=== PATIENT | male | born 1980 | race African-American/Black ===

== ENCOUNTER 2016-06-18 14:02 | Emergency (ER) | payer OTHER ==
[~2016-06-18] VITALS: Ht 185.4 cm; Wt 99.8 kg
[~2016-06-18 14:02] MED LIST: GEODON20 MG PO; SEROQUEL200 MG PO
[2016-06-18 14:22] VITALS: BP 135/86
--- NOTE | 2016-06-18 15:07 | NUR ---
PT STATES HEADACHE, SORE THROAT FOR TWO WEEKS . DENIES N/V/D; SKIN IS PINK/WARM/DRY; AAOX4 WITH EVEN AND STEADY GAIT; PT DENIES ANY FEVER, CP, SOB, AT THIS TIME; PATIENT STATES PAIN OF 8/10 AT THIS TIME; VSS; PATIENT POSITIONED FOR COMFORT; HOB ELEVATED; BEDRAILS UP X1; BED DOWN. .
[2016-06-18 16:15] VITALS: BP 135/86
--- NOTE | 2016-06-18 16:16 | NUR ---
Patient discharged with v/s stable. Written and verbal after care instructions given and explained. Patient alert, oriented and verbalized understanding of instructions. Ambulatory with steady gait. All questions addressed prior to discharge. ID band removed. Patient advised to follow up with PMD. Rx of IBUPROFEN, PROMETHAZINE given. Patient educated on indication of medication including possible reaction and side effects. Opportunity to ask questions provided and answered.
== END 2016-06-18 16:16 | disposition home or self-care (01) ==
LOC: MED 14:02
DX: J06.9 Acute upper respiratory infection, unspecified (principal); R03.0 Elevated blood-pressure reading, without diagnosis of hypertension; F20.9 Schizophrenia, unspecified

== ENCOUNTER 2016-07-20 16:40 | Emergency (ER) | payer OTHER ==
[~2016-07-20] VITALS: Ht 185.4 cm; Wt 100.7 kg
[2016-07-20 16:52] VITALS: BP 130/87
--- NOTE | 2016-07-20 17:27 | NUR ---
Patient ambulated to bed 5 with family. TANK COOPER evaluating patient at bedside.
--- NOTE | 2016-07-20 17:35 | NUR ---
Patient being evaluated by physician at bedside.
[2016-07-20 18:20] VITALS: BP 135/70
--- NOTE | 2016-07-20 18:22 | NUR ---
Patient discharged with v/s stable. Written and verbal after care instructions given and explained. Patient alert, oriented and verbalized understanding of instructions. Ambulatory with steady gait. All questions addressed prior to discharge. ID band removed. Patient advised to follow up with PMD. Rx of MOTRIN AND EAR DROPS given. Patient educated on indication of medication including possible reaction and side effects. Opportunity to ask questions provided and answered.
== END 2016-07-20 18:21 | disposition home or self-care (01) ==
LOC: MED 16:40
DX: H60.91 Unspecified otitis externa, right ear (principal); F17.200 Nicotine dependence, unspecified, uncomplicated; Z71.6 Tobacco abuse counseling

== ENCOUNTER 2016-08-14 01:20 | Emergency (ER) | payer OTHER ==
[~2016-08-14] VITALS: Ht 185.4 cm; Wt 100.7 kg
[~2016-08-14 01:20] MED LIST changes: -GEODON20 MG PO; +QUET200T PO; -SEROQUEL200 MG PO; +ZIPR20CA1 PO
[2016-08-14 01:23] VITALS: BP 148/90
--- NOTE | 2016-08-14 04:04 | NUR ---
TO ER BED 4
--- NOTE | 2016-08-14 04:08 | NUR ---
35 Y/O HERE W/C/O ABD PAIN, NAUSEA AND VOMITTING X LAST NIGHT. NO S/S OF DISTRESS NOTED AT THE MOMENT. ER MD MADE AWARE.
[2016-08-14] MEDS ORDERED: KETOROLAC 60 MG/2 ML VIAL IM ONE (04:25)
[2016-08-14 05:26] VITALS: BP 135/84
== END 2016-08-14 05:26 | disposition home or self-care (01) ==
LOC: MED 01:20
DX: K59.00 Constipation, unspecified (principal); R03.0 Elevated blood-pressure reading, without diagnosis of hypertension; F17.210 Nicotine dependence, cigarettes, uncomplicated
CPT/HCPCS: 74000; 99283

== ENCOUNTER 2017-05-23 17:18 | Emergency (ER) | payer MEDICAID, OTHER ==
[~2017-05-23] VITALS: Ht 185.4 cm; Wt 95.8 kg
[2017-05-23 17:37] VITALS: BP 144/85
--- NOTE | 2017-05-23 18:38 | NUR ---
Tri garza in ED - 05/23/17 at 1843 by [email or web address] 36/M PRESENT TO ER C/O RT SHOULDER PAIN x 2MO. PT CANNOT RECALL INJURY OR TRAUMA.
--- NOTE | 2017-05-23 18:43 | NUR ---
36/M PRESENT TO ER C/O RT SHOULDER PAIN x 2MO. PT CANNOT RECALL INJURY OR TRAUMA.SKIN IS PINK/WARM/DRY; AAOX4 WITH EVEN AND STEADY GAIT; LUNGS CLEAR BL; PATIENT STATES PAIN OF 02/03 AT THIS TIME. Addendum: 05/23/17 at 1850 by [email or web address] PT DOESN'T WANT PAIN MED AT THIS TIME
[2017-05-23 18:49] VITALS: BP 144/85
== END 2017-05-23 18:49 | disposition home or self-care (01) ==
LOC: MED 17:18
DX: S46.911A Strain of unspecified muscle, fascia and tendon at shoulder and upper arm level, right arm, initial encounter (principal); X58.XXXA Exposure to other specified factors, initial encounter; Y93.89 Activity, other specified; Y92.89 Other specified places as the place of occurrence of the external cause; Y99.8 Other external cause status
CPT/HCPCS: 73030; 99284

== ENCOUNTER 2017-08-18 07:27 | Emergency (ER) | payer MEDICAID, OTHER ==
[~2017-08-18] VITALS: Ht 190.5 cm; Wt 97.1 kg
[2017-08-18 07:31] VITALS: BP 136/83
--- NOTE | 2017-08-18 07:34 | NUR ---
pt ambulated to bed 11
--- NOTE | 2017-08-18 07:36 | NUR ---
dr brice evaluating at bedside
--- NOTE | 2017-08-18 07:37 | NUR ---
PT COMES TO ED C/O HEADACHE TO RT TEMPORAL AREA FOR 1 MONTH, "STATES THERES SOMETHING IN THERE." PT DENIES SOB, N/V/DIZZINESS. NAD NOTED/STATED OTHERWISE.
[2017-08-18 07:46] VITALS: BP 133/78
== END 2017-08-18 07:47 | disposition home or self-care (01) ==
LOC: MED 07:27
DX: M26.601 Right temporomandibular joint disorder, unspecified (principal); R03.0 Elevated blood-pressure reading, without diagnosis of hypertension
CPT/HCPCS: 99283

== ENCOUNTER → 2018-07-21 10:45 | Emergency (ER) | payer OTHER ==
[~2018-07-21] VITALS: Ht 185.4 cm; Wt 103.4 kg
[2018-07-21 10:47] VITALS: BP 187/107
--- NOTE | 2018-07-21 10:47 | NUR ---
ROSARIO GOLDSTEIN [facility], OFFICER ANNIE, C/O HTN AND THROBING HEADACHE AT 5/10 X1 DAY. PERRLA, AAOX4, FACIAL SYMMETRY INTACT, MEMORY INTACT, SPEECH CLEAR, AND STEADY GAIT. VSS. CHRISTY ECHAVARRIA TO SEE PT. MEDHX:DENIES RX:DENIES NKA
[2018-07-21 11:23] VITALS: BP 187/107
--- NOTE | 2018-07-21 11:23 | NUR ---
PATIENT BIB [facility] [employer]. PATIENT EXAMINED BY DR. MEIER. PATIENT MEDICALLY CLEARED AND RELEASED IN CUSTODY IN STABLE CONDITION. ORIGINAL PRE-BOOK FORM GIVEN TO OFFICER ANNIE.
== END ==
LOC: MED 10:45
DX: Z02.89 Encounter for other administrative examinations (principal); Z79.899 Other long term (current) drug therapy
CPT/HCPCS: 99283

== ENCOUNTER 2022-08-22 08:23 | Emergency (ER) | payer MEDICAID, OTHER ==
[~2022-08-22] VITALS: Ht 185.4 cm; Wt 102.1 kg
[2022-08-22 08:31] VITALS: BP 152/97
--- NOTE | 2022-08-22 08:44 | NUR ---
The patient's care was reviewed and supervised by TALISHA RIVERO RN.
--- NOTE | 2022-08-22 08:50 | NUR ---
Dr. Cruz evaluating patient at bedside.
[2022-08-22] MEDS ORDERED: KETOROLAC 15 MG/ML VIAL IM ONE (08:55)
[2022-08-22] MEDS ORDERED: IBUP-2213 PO (09:02)
--- NOTE | 2022-08-22 09:26 | NUR ---
Patient discharged with v/s stable. Written and verbal after care instructions UPPPER RESP. INFECTION, VIRAL given and explained. Patient verbalized understanding. Ambulatory with steady gait. All questions addressed prior to discharge. Advised to follow up with PMD. PT. STABLE FOR D/C, AWAKE AND ALERT
== END 2022-08-22 09:25 | disposition home or self-care (01) ==
LOC: MED 08:23
DX: J06.9 Acute upper respiratory infection, unspecified (principal); Z79.899 Other long term (current) drug therapy
CPT/HCPCS: 96372; 99283; J1885

== ENCOUNTER 2022-09-16 15:11 | Emergency (ER) | payer MEDICAID ==
[~2022-09-16] VITALS: Ht 182.9 cm; Wt 117.0 kg
[~2022-09-16 15:11] MED LIST changes: +IBUP-2213 PO
[2022-09-16 15:46] VITALS: BP 161/108
--- NOTE | 2022-09-16 18:21 | NUR ---
PT AMBULATORY TO BED 1
--- NOTE | 2022-09-16 19:24 | NUR ---
report given to rosario barnett
[2022-09-16 19:30] VITALS: BP 141/9
--- NOTE | 2022-09-16 19:30 | NUR ---
Assumed care of patient at change of shift. Introduced self to patient, patient resting comfortably at this time c/o 10/10 bilateral ear and abd pain ongoing x4 months but worse today. Bed to low position sr up, continue to monitor.
[2022-09-16] MEDS ORDERED: DICYCLOMINE 10 MG CAP PO ONE (19:50)
[2022-09-16] MEDS ORDERED: ONDANSETRON 4 MG ODT PO ONE (19:50)
[2022-09-16] MEDS ORDERED: IBUPROFEN 600 MG TAB PO ONE (19:50)
[2022-09-16 20:03] LABS: BASOPHILS % (AUTO) 0.5 % (0.0-2.0); EOSINOPHILS % (AUTO) 0.6 % (0.0-4.0); HEMATOCRIT 43.8 % (36-52); HEMOGLOBIN 14.8 g/dL (12.0-18.0); LYMPHOCYTES % (AUTO) 14.3 % (20.5-51.1); MEAN CORPUSCULAR HEMOGLOBIN 30 pg (27-31); MEAN CORPUSCULAR HGB CONC 34 g/dL (33-37); MEAN CORPUSCULAR VOLUME 89.2 fL (80-94); MONOCYTES # (AUTO) 0.6 K/uL (0.8-1.0); NEUTROPHILS # (AUTO) 5.4 K/uL (1.8-7.7); NEUTROPHILS % (AUTO) 75.6 % (42.2-75.2); PLATELET COUNT (AUTO) 204 K/uL (140-450); RED BLOOD CELL COUNT(AUTO) 4.91 MIL/uL (4.20-6.10); RED CELL DISTRIBUTION WIDTH 14.2 % (11.6-13.7); WHITE BLOOD COUNT (AUTO) 7.1 K/uL (4.8-10.8)
[2022-09-16 20:03] LABS: APPEARANCE,URINE CLEAR (CLEAR); BILIRUBIN,URINE NEGATIVE (NEGATIVE); BLOOD, URINE TRACE-I (NEGATIVE); COLOR,URINE YELLOW (YELLOW); LEUKOCYTE ESTERASE ,URINE NEGATIVE (NEGATIVE); NITRITE, URINE POSITIVE (NEGATIVE); PH,URINE 6.5 (5.0-9.0); UGLUCOSE NEGATIVE (NEGATIVE)
--- NOTE | 2022-09-16 20:05 | NUR ---
patient medicated as ordered w/ motrin, bentyl, and zofran odt as ordered. will observe for any adverse reaction. bed to low position sr up, continue to monitor.
[2022-09-16 20:22] LABS: ALBUMIN 3.3 g/dL (3.4-5.0); TOTAL BILIRUBIN 0.4 mg/dL (0.0-1.0)
[2022-09-16] MEDS ORDERED: POTASSIUM CHLORIDE 10 MEQ TABER PO ONE (20:30)
--- NOTE | 2022-09-16 20:45 | NUR ---
patient medicated as ordered w/ [id number]/kcl will observe for any adverse reaction. bed to low position sr up, continue to monitor.
[2022-09-16] MEDS ORDERED: ONDA-188 PO (21:12)
[2022-09-16] MEDS ORDERED: PSEU120T22 PO (21:12)
[2022-09-16] MEDS ORDERED: BEN10 PO (21:12)
--- NOTE | 2022-09-16 21:30 | NUR ---
Patient discharged with v/s stable. Written and verbal after care instructions given and explained. Patient alert, oriented and verbalized understanding of instructions. Ambulatory with steady gait. All questions addressed prior to discharge. ID band removed. Patient advised to follow up with PMD. Rx of DANIS SANCHEZ, AND ZACH given. Opportunity to ask questions provided and answered.
== END 2022-09-16 21:30 | disposition home or self-care (01) ==
LOC: MED 15:11
DX: A08.4 Viral intestinal infection, unspecified (principal); H93.8X3 Other specified disorders of ear, bilateral; E87.6 Hypokalemia; Z79.899 Other long term (current) drug therapy
CPT/HCPCS: 36415; 80053; 81001; 83690; 85025; 99284; Q0162

== ENCOUNTER 2023-08-19 13:18 | Emergency (ER) | payer MEDICAID ==
[~2023-08-19] VITALS: Ht 188 cm; Wt 118.9 kg
[~2023-08-19 13:18] MED LIST changes: +BEN10 PO; +ONDA-188 PO; +PSEU120T22 PO
[2023-08-19 13:26] VITALS: BP 161/115; PULSE 89; RESP 18; TEMP 98.4; O2SAT 98
[2023-08-19] MEDS ORDERED: AMOX875T3 PO (13:50)
[2023-08-19] MEDS ORDERED: IBUP-2213 PO (13:50)
[2023-08-19] MEDS ORDERED: BACI-418 TP (13:50)
[2023-08-19] MEDS: IBUPROFEN 600 MG TAB PO ONE (14:05)
[2023-08-19 14:30] VITALS: BP 142/88; PULSE 88; RESP 16; TEMP 98; O2SAT 99
[2023-08-19 15:06] LABS: FLU A ANTIGEN negative (NEGATIVE); FLU B ANTIGEN NEGATIVE (NEGATIVE)
== END 2023-08-19 14:30 | disposition home or self-care (01) ==
LOC: MED 13:18
DX: S00.511A Abrasion of lip, initial encounter (principal); H66.93 Otitis media, unspecified, bilateral; Z20.822 Contact with and (suspected) exposure to COVID-19; Z79.1 Long term (current) use of non-steroidal anti-inflammatories (NSAID); Z79.899 Other long term (current) drug therapy; X58.XXXA Exposure to other specified factors, initial encounter; Y93.89 Activity, other specified; Y92.89 Other specified places as the place of occurrence of the external cause; Y99.8 Other external cause status
CPT/HCPCS: 99283

== ENCOUNTER 2024-01-22 11:50 | Emergency (ER) | payer MEDICAID ==
[~2024-01-22] VITALS: Ht 185.4 cm; Wt 108.4 kg
[~2024-01-22 11:50] MED LIST changes: -BEN10 PO; -IBUP-2213 PO; -ONDA-188 PO; +POTA10TA70 PO; -PSEU120T22 PO; -QUET200T PO; -ZIPR20CA1 PO
[2024-01-22 12:26] VITALS: BP 155/105; PULSE 76; RESP 16; TEMP 98.4; O2SAT 96
[2024-01-22] MEDS ORDERED: IBUP-2213 PO (12:48)
== END 2024-01-22 13:00 | disposition home or self-care (01) ==
LOC: MED 11:50
DX: H92.03 Otalgia, bilateral (principal); J02.9 Acute pharyngitis, unspecified; R03.0 Elevated blood-pressure reading, without diagnosis of hypertension; Z79.899 Other long term (current) drug therapy
CPT/HCPCS: 99282